=== PATIENT | female | born 1990 | race African-American/Black ===

== ENCOUNTER 2016-11-23 07:02 | Emergency (ER) | payer OTHER ==
[~2016-11-23] VITALS: Ht 162.6 cm; Wt 75.3 kg
[2016-11-23] MEDS ORDERED: ULTRAM 50MG TAB50 MG PO (08:35)
[2016-11-23 08:44] VITALS: BP 129/65
== END 2016-11-23 08:44 | disposition home or self-care (01) ==
LOC: ER 07:02
DX: S90.121A Contusion of right lesser toe(s) without damage to nail, initial encounter (principal); Z88.6 Allergy status to analgesic agent; W22.8XXA Striking against or struck by other objects, initial encounter; Y93.89 Activity, other specified; Y92.89 Other specified places as the place of occurrence of the external cause; Y99.8 Other external cause status

== ENCOUNTER → 2018-01-09 | Outpatient (CLI) | payer OTHER ==
[~2018-01-09] MED LIST: ULTRAM 50MG TAB50 MG PO
== END ==
LOC: RAD 08:43
DX: M25.572 Pain in left ankle and joints of left foot (principal)